=== PATIENT | female | born 1950 | race Caucasian/White ===

== ENCOUNTER → 2019-06-13 | Outpatient (CLI) | payer MEDICARE ==
[~2019-06-13] MED LIST: ADULT LOW DOSE81 MG PO; ALPRAZOLAM PO; AMBIEN 10 MG TA10 MG PO; BENTYL 10 MG CA10 M1 PO; CALCITRATE200 MG PO; COMBIVENT INH; ENALAPRIL MALEAT5 M1 PO; FISH OIL 1,0001 EAC5 PO; FLONASE; GAS-X125 MG PO; HUMALOG MI100 UNIT/3 SQ; HYDROCODONE-AP1 EAC6 PO; LANTUS SC; LASIX 40 MG TAB40 M2 PO; LEVALBUTER1.25 MG/0. INH; LIPITOR20 MG PO; LOMOTIL TABLET1 EACH PO; LYRICA 75 MG CA75 MG PO; LYRICA150 MG PO; METOLAZONE 2.52.5 M1 PO; NEXIUM40 MG PO; NIASPAN 500 MG500 M1 PO; NITROGLYCERIN0.4 MG SUBLING; OXYGEN MISCELL; POTASSIUM20 PO; PREMARIN0.3 MG PO; RESTASIS1 EACH; SINGULAIR 10 MG10 M1 PO; SYMBICORT160 MCG/4. INH; THERA-M CAPLET1 EACH PO; TRAMADOL 50 MG50 MG PO; ULTRAM 50MG TAB50 MG PO; WELLBUTRIN SR150 MG PO
== END ==
LOC: NUC 06:25
DX: I25.10 Atherosclerotic heart disease of native coronary artery without angina pectoris (principal); E78.5 Hyperlipidemia, unspecified; I11.0 Hypertensive heart disease with heart failure; I50.9 Heart failure, unspecified; E11.51 Type 2 diabetes mellitus with diabetic peripheral angiopathy without gangrene; I45.10 Unspecified right bundle-branch block; Z79.899 Other long term (current) drug therapy; Z88.0 Allergy status to penicillin

== ENCOUNTER → 2019-08-02 | Outpatient (CLI) | payer MEDICARE ==
[~2019-08-02] VITALS: Ht 149.9 cm; Wt 76.6 kg
[~2019-08-02] MED LIST changes: +B12INJ IM; -FLONASE; +FLONASE 0.05%50 MCG NASAL; +HYDROCODON-ACE1 EAC7 PO; +NEURONTIN 300300 M1 PO
[2019-08-02 13:01] VITALS: BP 139/71
--- NOTE | 2019-08-02 13:11 | NUR ---
Pain Clinic Assessment: 1. History of Osteoarthritis: History of Rheumatoid Arthritis: Not Applicable 2. Height: 4 ft. 11 in. 149.9 cm. Weight: 168.8 lb. oz. 76.567 kg. Patient's BMI: 34.1 3. Vital Signs: BP: 139/71 Pulse: 82 Resp: 16 Temp: 02 Sat: 96 ECG Mon: 4. Pain Intensity: 8-9 5. Fall Risk: Dizziness: Y Needs help standing or walking: N Fallen in the last 3 months: N Fall risk comments: 6. Patient on Blood Thinner: None 7. History of Hypertension: Y 8. Opioid Therapy greater than 6 weeks: Y Opiate Contract Signed: 9. Risk Assessment Tool Provided: 10. Functional Assessment Tool: 11. Recreational Drug Use: Never Drug Type: Tobacco Use: Never Smoker Tobacco Type: Amount or Packs/day: How Many Years: Alcohol Use: Yes Frequency: Special Occasions Quant: 1
--- NOTE | 2019-08-18 08:26 | HPC ---
[facility] [place] [address] PAIN MANAGEMENT CONSULTATION Name: MURIEL VIZCAINO Room #: REG Jacob Esteban#: [id number] Admission: 08/02/19 Attend Phys: Breann Hummel MD Discharge: Date of : 46 Report #: [id number] THIS REPORT FOR: //name// CC: Amy Hummel DATE OF SERVICE: 08/02/2019 PRIMARY CARE PHYSICIAN: Amy Hummel MD CHIEF COMPLAINT: Low back and pain in the buttocks. HISTORY OF PRESENT ILLNESS: The patient is a 69-year-old female who has been referred to the pain clinic for evaluation. She has a history of back problems. She has undergone epidural steroid injections in the past and found them beneficial. She has had some problems with her SI joint. She has undergone physical therapy. After injection in the past, she noted significant improvement in her pain. Over the last 2-1/2 to 3 months, she has noted a worsening of her pain. She has worked hard to lose weight. She has had a gastric bypass. She has lost a total of 130 pounds. Notes that she has a pulling sensation in the lower portion of her back. Has increased pain when she is bending, twisting, and finds the pain to be problematic. Most pain is across the lower portion of the back in the lumbar area. She is having pain in the right hip as well as in the groin. Does have stenosis and neurogenic bladder. Has some pain in the area above her knee with pins and needle sensation. Pain is worse when she is sitting, twisting and with any fast movements. Describes as continuous, gnawing, sharp and stabbing. Rates her pain at 8 today, can be rise to a level of 8-9. ALLERGIES: PENICILLIN. CURRENT MEDICATIONS: Hydrocodone 5/325, vitamin B12 1000 mcg monthly intramuscular, gabapentin 300 mg b.i.d., tramadol 50 mg 4 times daily, Xopenex 1.25 mg inhalation t.i.d., Wellbutrin 150 mg, Gas-X 125 mg, oxygen as directed, metolazone 2.5 mg, Lasix 40 mg b.i.d., Lomotil 4 times daily as needed, Bentyl 10 mg, Xanax 1 mg t.i.d., Symbicort 160/4.5 inhalation b.i.d., Singulair 10 mg, potassium 20 mEq, takes 4 tabs daily, Nexium 40 mg, Lipitor 20 mg, Flonase 0.05% spray, enalapril 5 mg, aspirin 81 mg, calcium 200 mg. PAST MEDICAL HISTORY: Diabetes, asthma, treated tuberculosis, hypertension, colon problems, stomach problems, emotional problems. PAST SURGICAL HISTORY: Gastric bypass in 2011, many bladder surgeries, left broken ankle, hysterectomy. SOCIAL HISTORY: She is a retired nurse. [place]ired 10-[address] [place] [address] PAIN MANAGEMENT CONSULTATION Name: MURIEL VIZCAINO Room #: REG EVELYN Lizama#: [id number] Admission: 08/02/19 Attend Phys: Breann Hummel MD Discharge: Date of : 46 Report #: [id number] REVIEW OF SYSTEMS: Decreased appetite, weakness, wears glasses, shortness of breath, chest pain, angina, asthma, rash, brittle nails, noninsulin dependent diabetes, easy bruising. LABORATORY DATA: No new laboratory values are available at the time of our interview. PAIN CLINIC ASSESSMENT AND PQRS: 1. History of osteoarthritis. The patient has some arthritic changes and complaints in her knee. She is not being treated for rheumatoid arthritis. 2. Height 4 feet 11 inches, weight 168 pounds, BMI is 34. 3. Vital Signs: Blood pressure 139/71, pulse 82, respiratory rate 16, room air saturation 96%, temperature was not measured. 4. Pain intensity 8-9/10. 5. Fall risk. The patient has not fallen in the last 3 months. 6. Blood thinner. The patient is not on a blood thinning medication. 7. Hypertension. The patient is being treated for hypertension. 8. Opioids greater than 6 weeks. The patient receives medication from her primary physician. 9. Risk assessment tool, low for opioids. 10. Functional assessment tool. 11. Recreational drug use. The patient denies use of recreational drugs. 12. Tobacco: The patient has never smoked. 13. Alcohol: The patient does occasionally drink alcoholic beverage. PHYSICAL EXAMINATION: GENERAL: The patient is a well-developed, well-nourished white female. Appears her stated age. She is alert and oriented x 3. Her affect is appropriate. Speech is fluent. HEENT: Normocephalic, atraumatic. Extraocular eye muscles intact. Sclerae nonicteric. Mucous membranes are moist. NECK: Without adenopathy or JVD. MUSCULOSKELETAL: Upper extremity muscle strength judged to be 5-/5 for the major muscle groups. Deep tendon reflexes are +3 at the biceps bilaterally. Difficult to assess for the brachioradialis and the deltoid. The patient complains of pain and discomfort in lower portion of her back. Has some pain and discomfort in the SI joint areas. Has pain radiating down the lower portion of the back as well as some pain and discomfort in the right medial thigh area. There is a burning component of the pain in the lower back area near the SI joints. Forward bending to 80 degrees cause some increased discomfort in the low back area. Left and right lateral rotation cause some increased back discomfort. The patient is able to rise to her toes. IMPRESSION: 1. Low back pain with pain radiating into the hip and the right groin area. [facility] [address] [place] [address] PAIN MANAGEMENT CONSULTATION Name: MURIEL VIZCAINO Room #: REG EVELYN ColeEsteban#: [id number] Admission: 08/02/19 Attend Phys: Breann Hummel MD Discharge: Date of : 46 Report #: [id number] 2. History of sympathetic sacroiliac joint dysfunction. 3. Diabetes. 4. Asthma. 5. Treated tuberculosis 6. Hypertension. 7. Colon problems, stomach problems, emotional problems. RECOMMENDATIONS: We will consider the possibility of an SI joint injection in the future. We will have the patient try hydrocodone 5 mg one p.o. 4-6 hours p.r.n. for pain. May consider epidural steroid injection in the upper area should the pain in the medial portion of her thigh remained, also may be a component of hip dysfunction. We would like to thank you for letting us participate in her care. We hope she continues to improve. <ELECTRONICALLY SIGNED> By: Breann Hummel MD 08/18/19 0826 [id number] [id number] Breann Hummel MD /PMT
== END ==
LOC: PAIN 07:08
DX: M54.5 Low back pain (principal); E11.9 Type 2 diabetes mellitus without complications; J45.909 Unspecified asthma, uncomplicated; I10 Essential (primary) hypertension; Z88.0 Allergy status to penicillin; Z79.891 Long term (current) use of opiate analgesic; Z79.899 Other long term (current) drug therapy

== ENCOUNTER → 2019-08-04 | Outpatient (CLI) | payer MEDICARE ==
[~2019-08-04] VITALS: Ht 149.9 cm; Wt 68.0 kg
[2019-08-04 09:35] VITALS: BP 110/65
--- NOTE | 2019-08-04 09:40 | NUR ---
Pain Clinic Assessment: 1. History of Osteoarthritis: History of Rheumatoid Arthritis: Not Applicable 2. Height: 4 ft. 11 in. 149.9 cm. Weight: 149.9 lb. oz. 67.994 kg. Patient's BMI: 30.3 3. Vital Signs: BP: 110/65 Pulse: 74 Resp: 14 Temp: 02 Sat: 96 ECG Mon: 4. Pain Intensity: 8 5. Fall Risk: Dizziness: N Needs help standing or walking: N Fallen in the last 3 months: N Fall risk comments: 6. Patient on Blood Thinner: None 7. History of Hypertension: Y 8. Opioid Therapy greater than 6 weeks: Y Opiate Contract Signed: 9. Risk Assessment Tool Provided: 10. Functional Assessment Tool: 11. Recreational Drug Use: Never Drug Type: Tobacco Use: Never Smoker Tobacco Type: Amount or Packs/day: How Many Years: Alcohol Use: Yes Frequency: Quant:
--- NOTE | 2019-08-18 08:26 | HPC ---
[facility] [address] [place] [address] PAIN MANAGEMENT CONSULTATION Name: MURIEL VIZCAINO Room #: REG EVELYN Dl#: [id number] Admission: 08/04/19 Attend Phys: Breann Hummel MD Discharge: Date of : 46 Report #: [id number] THIS REPORT FOR: //name// CC: Amy Hummel DATE OF SERVICE: 08/04/2019 CHIEF COMPLAINT: Here for an injection in the sacroiliac joints. HISTORY: The patient is a 69-year-old female who has been seen in the Pain Clinic in the past because of chronic back problems. She has undergone epidural injections in the past. These have been beneficial. She has also had problems with her sacroiliac joints. After undergoing injections in these areas, she has found that they have been helpful. She has noted over the last 2-1/2 to 3 months that her pain has again started to worsen. She has been working hard trying to lose weight. Overall, she has lost a total of about 130 pounds. She notes that bending, twisting, and other movements can exacerbate pain and discomfort. She has been having some pain in the right hip as well as it was emanating or radiating into the groin. Has a history of stenosis and neurogenic bladder. Has had some continuous gnawing, sharp, stabbing pain and rates her pain as an 8/10 today. She has returned to the Pain Clinic with a desire of undergoing SI joint injections. ALLERGIES: PENICILLIN. CURRENT MEDICATIONS: Hydrocodone 5/325, vitamin B12 1000 mcg monthly intramuscular, gabapentin 300 mg b.i.d., tramadol 50 mg 4 times daily, Xopenex 1.25 mg inhalation t.i.d., Wellbutrin 150 mg, Gas-X 125 mg, oxygen as directed, metolazone 2.5 mg, Lasix 40 mg b.i.d., Lomotil 4 times daily, Bentyl 10 mg, Xanax 1 mg t.i.d., Symbicort 160 mcg/4.5 inhalation b.i.d., Singulair 10 mg, potassium 20 mEq, 4 tablets daily, Nexium 40 mg, Lipitor 20 mg, Flonase 0.05% spray, enalapril 5 mg, aspirin 81 mg, and calcium 200 mg. PAIN CLINIC ASSESSMENT/PQRS: 1. History of osteoarthritis. The patient has some arthritic changes and has had problems with her knees. She is not being treated for rheumatoid arthritis. 2. Height 4 feet 11 inches, weight 149 pounds, and BMI is 30. 3. Vital signs: Blood pressure 110/65, pulse 74, respiratory rate 14, room air saturation 96%. 4. Pain intensity, 8/10. 5. Fall history: The patient has not fallen in the last 3 months. 6. Blood thinner. The patient is not on a blood thinning medication. 7. Hypertension. The patient is being treated for hypertension. 8. Opioids greater than 6 weeks. The patient received medication from her primary physician. [address] [address] PAIN MANAGEMENT CONSULTATION Name: MURIEL VIZCAINO Room #: REG CLJacob Lizama#: [id number] Admission: 08/04/19 Attend Phys: Breann Hummel MD Discharge: Date of : 46 Report #: [id number] 9. Risk assessment tool, low for opioid use. 10. Functional assessment tool. 11. Recreational drug use. The patient denies use of recreational drugs. 12. Tobacco: The patient has never smoked. 13. Alcohol: The patient does occasionally drink alcoholic beverages. PHYSICAL EXAMINATION: GENERAL: The patient is a well-developed, well-nourished white female. Appears her stated age. She is alert and oriented x 3. Her affect is appropriate. Speech is fluent. HEENT: Normocephalic, atraumatic. Extraocular eye muscles intact. Sclerae nonicteric. Mucous membranes are moist. MUSCULOSKELETAL: Upper extremity muscle strength judged to be 5-/5 for the major muscle groups in the upper extremity. The patient has some pain and discomfort in lower portion of her back. Has some pain in the SI joint areas. Has pain that radiates down to the lower portion of her back as well as pain in the right medial aspect of her thigh. There is a burning component to the pain in the lower portion of her back near the SI joints. Forward bending to 80 degrees cause some increased low back discomfort. Left and right lateral rotation cause some increased back discomfort. The patient is able to rise on her toes. IMPRESSION: 1. Low back pain with pain radiating into the hips and in the right groin. 2. History of symptomatic sacroiliac joint dysfunction. 3. Diabetes. 4. Asthma. 5. Treated tuberculosis. 6. Hypertension. 7. Colon problems, stomach. 8. Stomach problems. 9. Emotional problems. RECOMMENDATIONS: We discussed treatment options with the patient. Risks and benefits of an SI joint injection to the affected areas were discussed. The patient has had these injected in the past and found them beneficial. She has returned today with hopes of undergoing an injection to help decrease her pain and discomfort. The patient was then taken to the procedure area. Questions were sought and answered. PROCEDURE: The patient was then assisted in getting on examination table. Fluoroscopy using anterior, posterior as well as lateral viewing were implemented. The patient's back was sterilely prepped with a Betadine solution and allowed to dry on the left and the right side. The right side was initially reviewed using fluoroscopy. A 0.25% bupivacaine was infiltrated at the right SI joint area. A 20-gauge spinal needle was then advanced down into the SI joint [address] [address] PAIN MANAGEMENT CONSULTATION Name: MURIEL VIZCAINO Room #: REG EVELYN Lizama#: [id number] Admission: 08/04/19 Attend Phys: Breann Hummel MD Discharge: Date of : 46 Report #: [id number]. Aspiration was negative. A total of 40 mg Depo-Medrol with 20 mg triamcinolone was injected into this area. The area had been highlighted using contrast medium for appropriate placement. The patient tolerated this well. She was then evaluated on the left side. Her back had been sterilely prepped. The SI joint area on the left was identified using fluoroscopy. Contrast dye was injected and appropriate spread was noted. A total of 40 mg Depo-Medrol and 20 mg triamcinolone was injected. A total of 6 mL of 0.5% bupivacaine was injected on the left side as well as the right side. Total of 36 seconds fluoroscopy time was used. The patient underwent the bilateral SI joint injections and tolerated well. Pain was decreased from 9-2 at the time of discharge. She will follow up in the future as needed. We would like to thank you for letting us participate in her care. We hope she continues to improve. <ELECTRONICALLY SIGNED> By: Breann Hummel MD 08/18/19 0826 [id number] [id number] Breann Hummel MD /nt
== END | disposition home or self-care (01) ==
LOC: PAIN 06:50
DX: M53.3 Sacrococcygeal disorders, not elsewhere classified (principal); M54.16 Radiculopathy, lumbar region; G89.29 Other chronic pain; I10 Essential (primary) hypertension; J45.909 Unspecified asthma, uncomplicated; E11.9 Type 2 diabetes mellitus without complications; Z98.890 Other specified postprocedural states; Z79.899 Other long term (current) drug therapy; Z88.0 Allergy status to penicillin; Z79.891 Long term (current) use of opiate analgesic; Z88.8 Allergy status to other drugs, medicaments and biological substances; Z79.82 Long term (current) use of aspirin

== ENCOUNTER → 2019-09-22 | Outpatient (CLI) | payer MEDICARE ==
[~2019-09-22] VITALS: Ht 149.9 cm; Wt 74.1 kg
[~2019-09-22] MED LIST changes: +TYLENOL PM EX-1 EACH PO
[2019-09-22 12:41] VITALS: BP 124/70
--- NOTE | 2019-09-22 12:56 | NUR ---
Pain Clinic Assessment: 1. History of Osteoarthritis: Not Applicable History of Rheumatoid Arthritis: Not Applicable 2. Height: 4 ft. 11 in. 149.9 cm. Weight: 163.3 lb. oz. 74.072 kg. Patient's BMI: 33.0 3. Vital Signs: BP: 124/70 Pulse: 92 Resp: 16 Temp: 02 Sat: 96 ECG Mon: 4. Pain Intensity: 10 5. Fall Risk: Dizziness: N Needs help standing or walking: N Fallen in the last 3 months: N Fall risk comments: 6. Patient on Blood Thinner: None 7. History of Hypertension: Y 8. Opioid Therapy greater than 6 weeks: Y Opiate Contract Signed: 9. Risk Assessment Tool Provided: 10. Functional Assessment Tool: 11. Recreational Drug Use: Never Drug Type: Tobacco Use: Never Smoker Tobacco Type: Amount or Packs/day: How Many Years: Alcohol Use: Yes Frequency: Quant:
--- NOTE | 2019-10-17 21:49 | HPC ---
[facility] [address] [place] [address] PAIN MANAGEMENT CONSULTATION Name: MURIEL VIZCAINO Room #: REG EVELYN Dl#: [id number] Admission: 09/22/19 Attend Phys: Breann Hummel MD Discharge: Date of : 46 Report #: [id number] THIS REPORT FOR: //name// CC: Amy Hummel DATE OF SERVICE: 09/22/2019 CHIEF COMPLAINT: Pain in the right thigh area that radiates down to the thigh with numbness, tingling and pain in the sacroiliac joint area. HISTORY: The patient is a 69-year-old female who has been seen in the Pain Clinic because of pain and discomfort in the sacroiliac joint areas. Epidural steroid injections have been helpful in the past. She had an injection in the SI joint in the past. She feels that this area on the right is that which is most problematic. She would like to proceed with another SI joint injection. She gleaned benefit from that injection in the past. She feels that this is the nidus for most of her pain and discomfort. She has been losing weight. She has lost a total of 130 pounds. Bending and twisting motions can exacerbate her pain. Has had some pain in the groin area. Has some problems with stenosis as well as problems with a neurogenic bladder. She has returned today with the hope of undergoing an injection to help decrease her pain. Her had a myocardial infarct. She had a 95% blockage. She has been taking care of him. Has used pain pills. She has found that they have been helpful. Repositioning herself can also be helpful. Describes some of the pain in the low back and buttocks area like a bowling ball in the middle of her buttocks. ALLERGIES: PENICILLIN. CURRENT MEDICATIONS: Hydrocodone 5/325, vitamin B12 1000 mcg monthly intramuscular, gabapentin 300 mg b.i.d., tramadol 50 mg 4 times daily, Xopenex 1.25 mg t.i.d. p.r.n., Wellbutrin 150 mg, Gas-X 125 mg, oxygen as directed, metolazone 2.5 mg, Lasix 40 mg b.i.d., Lomotil 4 times daily, Bentyl 10 mg, Xanax 1 mg t.i.d., Symbicort 160 mcg/4.5 b.i.d., Singulair 10 mg, potassium 20 mEq, 4 tablets daily, Nexium 40 mg, Lipitor 20 mg, Flonase 0.05% spray, enalapril 5 mg, aspirin 81 mg, calcium 200 mg. PAIN CLINIC ASSESSMENT/PQRS: 1. History of osteoarthritis. The patient is not being treated for osteoarthritis or rheumatoid arthritis. 2. Height 4 feet 11 inches, weight 161 pounds, BMI is 33. 3. Vital signs: Blood pressure 124/70, pulse 92, respiratory rate 16, room air saturation 96%. 4. Pain intensity, 10/10. 5. Fall history: The patient has not fallen in the last 3 months. 6. Blood thinner. The patient is not on a blood thinning medication. [address] [address] PAIN MANAGEMENT CONSULTATION Name: MURIEL VIZCAINO Room #: REG CLJacob Lizama#: [id number] Admission: 09/22/19 Attend Phys: Breann Hummel MD Discharge: Date of : 46 Report #: [id number] 7. Hypertension. The patient is being treated for hypertension. 8. Opioids greater than 6 weeks. The has low score for opioid use. 9. Functional assessment tool, . 10. Recreational drugs. The patient denies use of recreational drugs. 11. Tobacco: The patient has never smoked. 12. Alcohol: The patient occasionally drinks alcoholic beverage. PHYSICAL EXAMINATION: GENERAL: The patient is a well-developed, well-nourished white female. She appears her stated age. She is alert and oriented x 3. Her affect is appropriate. Speech is fluent. HEENT: Normocephalic, atraumatic. Extraocular eye muscles intact. Sclerae nonicteric. Mucous membranes are moist. MUSCULOSKELETAL: Upper extremity muscle strength is 5/5 for the major muscle groups in the upper extremity. The patient has pain and discomfort in lower portion of her back. Has some pain in the SI joint area, particularly on the right. Has positive Js's sign on the right. The patient notes a burning component to her pain in the lower SI joint area. Forward bending to 80 degrees cause some increased pain and discomfort. IMPRESSION: 1. Sacroiliac joint dysfunction with pain radiating into the right groin area as well as diabetes. 2. Asthma. 3. Tuberculosis treated in the past. 4. Hypertension. 5. Colon problems/stomach. 6. Emotional problems. RECOMMENDATIONS: We discussed treatment options with the patient. Risks and benefits of an SI joint injection were discussed. They include but are not limited to infection, worsening pain, no improvement in pain, bleeding and nerve damage. The patient elects to proceed. PROCEDURE NOTE: The patient was taken to the procedure area. She was then assisted in getting on examination table. Fluoroscopy using anterior, posterior viewing were implemented. The patient's back had been sterilely prepped with a Betadine solution and allowed to dry. A skin wheal was placed at the right SI joint area. A 25-gauge needle was then used to anesthetize the area. After this area was anesthetized. A 20-gauge spinal needle was then advanced into the area of the SI joint. Contrast media was injected. Appropriate flow was noted. A total of 40 mg triamcinolone and 5 mL of 0.5% bupivacaine was injected. The patient tolerated the procedure well. There were no complications. She remained in the Pain Clinic for an appropriate amount of time. She will follow up in the future as needed. [address] [address] PAIN MANAGEMENT CONSULTATION Name: MURIEL VIZCAINO Room #: REG [facility].#: [id number] Admission: 09/22/19 Attend Phys: Breann Hummel MD Discharge: Date of : 46 Report #: [id number] We would like to thank you for letting us participate in her care. We hope she continues to improve. <ELECTRONICALLY SIGNED> By: Breann Hummel MD 10/17/19 2149 [id number] Breann Hummel MD /nt
== END | disposition home or self-care (01) ==
LOC: PAIN 06:49
DX: M53.3 Sacrococcygeal disorders, not elsewhere classified (principal); Z88.0 Allergy status to penicillin; Z79.82 Long term (current) use of aspirin; Z79.899 Other long term (current) drug therapy; Z98.890 Other specified postprocedural states

== ENCOUNTER → 2019-10-11 | Outpatient (CLI) | payer MEDICARE ==
[~2019-10-11] VITALS: Ht 149.9 cm; Wt 74.5 kg
[2019-10-11 08:47] VITALS: BP 125/61
--- NOTE | 2019-10-11 09:08 | NUR ---
Pain Clinic Assessment: 1. History of Osteoarthritis: Not Applicable History of Rheumatoid Arthritis: Not Applicable 2. Height: 4 ft. 11 in. 149.9 cm. Weight: 164.2 lb. oz. 74.481 kg. Patient's BMI: 33.1 3. Vital Signs: BP: 125/61 Pulse: 93 Resp: 14 Temp: 02 Sat: 95 ECG Mon: 4. Pain Intensity: 10 5. Fall Risk: Dizziness: N Needs help standing or walking: N Fallen in the last 3 months: N Fall risk comments: 6. Patient on Blood Thinner: None 7. History of Hypertension: Y 8. Opioid Therapy greater than 6 weeks: Y Opiate Contract Signed: 9. Risk Assessment Tool Provided: 10. Functional Assessment Tool: 11. Recreational Drug Use: Never Drug Type: Tobacco Use: Never Smoker Tobacco Type: Amount or Packs/day: How Many Years: Alcohol Use: Yes Frequency: Weekly Quant: 2-3 GLASSES OF WINE
--- NOTE | 2019-10-25 13:08 | HPC ---
[facility] [address] [place] [address] PAIN MANAGEMENT CONSULTATION Name: MURIEL VIZCAINO Room #: REG JESSICAJacob Burgos.#: [id number] Admission: 10/11/19 Attend Phys: Breann Hummel MD Discharge: Date of : 46 Report #: [id number] THIS REPORT FOR: //name// CC: Amy Hummel DATE OF SERVICE: 10/11/2019 CHIEF COMPLAINT: Still having pain in the sacroiliac area. HISTORY: The patient is a 69-year-old female who has been seen in the pain clinic because of SI joint dysfunction. She has had injections in the SI joints in the past and gleaned benefits from these. She continues to have pain, which is quite debilitating at this point. Rates her pain at a high level of 10/10. She has returned to the pain clinic with the hopes of undergoing another SI joint injection with some improvement in her pain. She notes that the pain is primarily on the right side. She has had some on the left side in the past. She is having difficulty engaging in activities of daily living because of this. She has returned with hopes of undergoing SI joint injection. ALLERGIES: PENICILLIN. CURRENT MEDICATIONS: Hydrocodone 5/325 1 p.o. q.4 hours p.r.n., vitamin B12 1000 mcg monthly intramuscular, gabapentin 300 mg b.i.d., tramadol 50 mg 4 times daily, Xopenex 1.25 mg inhalation t.i.d., Wellbutrin 150 mg, Gas-X 125 mg, oxygen p.r.n., metolazone 2.5 mg, Lasix 40 mg b.i.d., Lomotil 4 mg p.r.n., Bentyl 10 mg, Xanax 1 mg t.i.d., Symbicort 160 mcg/4.5 inhalation b.i.d., Singulair 10 mg, potassium 20 mEq, Nexium 40 mg, Lipitor 20 mg, Flonase 0.05% spray, enalapril 5 mg, aspirin 81 mg, calcium 200 mg. PAIN CLINIC ASSESSMENT AND PQRS: 1. The patient has some arthritic changes involving her knees. She is not being treated for rheumatoid arthritis. 2. Height 4 feet 11 inches, weight 162 pounds, BMI is 32.7. 3. Vital signs: Blood pressure 125/61, pulse 93, respiratory rate 14, room air saturation 95%. 4. Pain intensity, 10/10. 5. Fall risk, the patient has not fallen in the last 3 months. 6. Blood thinner, the patient is not on a blood thinning medication. 7. Hypertension, the patient is not being treated for hypertension. 8. Opioids greater than 6 weeks. The patient is receiving opioid medications p.r.n. 9. Risk assessment tool, low for opioid use. 10. Functional assessment tool, 38 of 70. 11. Recreational drug use, the patient denies. 12. Tobacco, the patient has never smoked. [address] [address] PAIN MANAGEMENT CONSULTATION Name: MURIEL VIZCAINO Room #: REG JESSICAJacob Lizama#: [id number] Admission: 10/11/19 Attend Phys: Breann Hummel MD Discharge: Date of : 46 Report #: [id number] 13. Alcohol, the patient drinks alcoholic beverages 2-3 times a week, a glass of wine. PHYSICAL EXAMINATION: GENERAL: The patient is a well-developed, somewhat short in stature, white female. Appears her stated age. She is alert and oriented x 3. Affect is appropriate. MUSCULOSKELETAL: The patient has pain and discomfort in the right SI joint area. Js sign is positive. The patient would like to have an injection. There is less pain and discomfort on the left side. IMPRESSION: Sacroiliac joint dysfunction. RECOMMENDATIONS: We discussed treatment options with the patient. Risks and benefits of the procedure, which could include but are not limited to infection, worsening of pain, no improvement in pain were discussed and the patient elects to proceed. PROCEDURE NOTE: The patient was taken to the procedure area. She was then assisted in getting on examination table. Her back was sterilely prepped with a Betadine solution. A 0.25% bupivacaine was infiltrated into the area. This was used with a 25-gauge needle to anesthetize the area. A 20-gauge spinal needle was then advanced into the SI joint. Aspiration was negative. A total of 80 mg Depo-Medrol, 40 mg triamcinolone and 0.5% 3 mL was injected. IV contrast dye was used. Appropriate spread was noted. There were no complications. The patient remained in the pain clinic. Her pain decreased from 10-2 at the time of discharge. Hopefully, she will continue to improve. <ELECTRONICALLY SIGNED> By: Breann Hummel MD 10/25/19 1308 [id number] Breann Hummel MD /[facility]
== END | disposition home or self-care (01) ==
LOC: PAIN 06:55
DX: M53.3 Sacrococcygeal disorders, not elsewhere classified (principal); G89.29 Other chronic pain; Z98.890 Other specified postprocedural states; Z79.899 Other long term (current) drug therapy; Z79.891 Long term (current) use of opiate analgesic; Z88.0 Allergy status to penicillin

== ENCOUNTER → 2020-01-29 | Outpatient (CLI) | payer MEDICARE | LOC: RAD 11:16 | DX: M41.85 Other forms of scoliosis, thoracolumbar region (principal); M47.816 Spondylosis without myelopathy or radiculopathy, lumbar region; M53.84 Other specified dorsopathies, thoracic region ==

== ENCOUNTER → 2020-01-31 | Outpatient (CLI) | payer MEDICARE ==
[~2020-01-31] VITALS: Ht 149.9 cm; Wt 75.4 kg
[2020-01-31 10:18] VITALS: BP 120/60
--- NOTE | 2020-01-31 10:27 | NUR ---
Pain Clinic Assessment: 1. History of Osteoarthritis: Not Applicable History of Rheumatoid Arthritis: Not Applicable 2. Height: 4 ft. 11 in. 149.9 cm. Weight: 166.2 lb. oz. 75.388 kg. Patient's BMI: 33.6 3. Vital Signs: BP: 120/60 Pulse: 76 Resp: 16 Temp: 02 Sat: 99 ECG Mon: 4. Pain Intensity: 10 5. Fall Risk: Dizziness: Y Needs help standing or walking: N Fallen in the last 3 months: N Fall risk comments: 6. Patient on Blood Thinner: None 7. History of Hypertension: Y 8. Opioid Therapy greater than 6 weeks: Y Opiate Contract Signed: 9. Risk Assessment Tool Provided: LOW RISK 10. Functional Assessment Tool: 11. Recreational Drug Use: Never Drug Type: Tobacco Use: Never Smoker Tobacco Type: Amount or Packs/day: How Many Years: Alcohol Use: No Frequency: Quant:
--- NOTE | 2020-02-02 08:21 | HPC ---
[facility] [place] [place] [address] PAIN MANAGEMENT CONSULTATION Name: MURIEL VIZCAINO Room #: REG [facility].#: [id number] Admission: 01/31/20 Attend Phys: Breann Hummel MD Discharge: Date of : 46 Report #: [id number] THIS REPORT FOR: cc: Amy Hummel MD,Amy Hummel,Breann Moran MD ~ CC: Amy Hummel DATE OF SERVICE: 01/31/2020 CHIEF COMPLAINT: The pain in the sacroiliac area has returned and would like to get an injection. HISTORY: The patient is a 69-year-old female who has been followed in the pain clinic because of sacroiliac joint dysfunction. She has undergone epidural injections in these areas. She has found that they have been beneficial. Over the last few weeks, she has noted a recurrence of her discomfort. She felt that the last injection was beneficial and she would like to proceed with another injection today. She has had no complications from their use. Last injection was in 10/2019. Notes that certain activities of ambulation exacerbate her pain and discomfort. Bending, twisting motions are problematic. She finds that hydrocodone is helpful. She would like to have this medication renewed. ALLERGIES: PENICILLIN. CURRENT MEDICATIONS: Hydrocodone 5/325 one p.o. q. 4-6 hours, total of 75 tablets given at the last visit. Tramadol 50 mg q.i.d., Xopenex 1.25 mg inhalation t.i.d., Wellbutrin 150 mg, Gas-X 125 mg, oxygen as directed, Metolazone 2.5 mg, Lasix 40 mg b.i.d., Lomotil 4 times daily, Bentyl 10 mg, Xanax 1 mg t.i.d., Symbicort 160 mcg/4.5 b.i.d., Singulair 10 mg, potassium 20 mEq 4 tablets daily, Nexium 40 mg, Lipitor 20 mg, Flonase 0.05% spray, Enalapril 5 mg, aspirin 81 mg, calcium 200 mg. PAIN CLINIC ASSESSMENT AND PQRS: 1. The patient has some arthritic changes in her back and her knees. She is not being treated for rheumatoid arthritis. 2. Height 4 feet 11 inches, weight 166 pounds, BMI is 33.6. 3. Vital Signs: Blood pressure 120/60, pulse 76, respiratory rate 16, room air saturation 99%. 4. Pain intensity 10/10. 5. Fall history: The patient has not fallen in the last 3 months. 6. Blood thinner. The patient is not on a blood thinning medication. 7. Hypertension. The patient is being treated for hypertension. 8. Opioids greater than 6 weeks. The patient receives medication [place] [address] PAIN MANAGEMENT CONSULTATION Name: MURIEL VIZCAINO Room #: [facility] [id number] Admission: 01/31/20 Attend Phys: Breann Hummel MD Discharge: Date of : 46 Report #: [id number] 9. Risk assessment tool, low for opioid use. 10. Functional assessment tool /. 11. Recreational drug use: The patient denies. 12. Tobacco: The patient has never smoked. 13. Alcohol. The patient denies frequent use of alcoholic beverages. PHYSICAL EXAMINATION: GENERAL: The patient is a well-developed, well-nourished white female. Appears her stated age. She is alert and oriented x 3. Her affect is appropriate. Speech is fluent. HEENT: Normocephalic, atraumatic. Extraocular eye muscles are intact. The patient is accompanied by her . MUSCULOSKELETAL: Upper extremity muscle strength judged to be 5/5 for the major muscle groups in the upper extremity. HEART: Regular. ABDOMEN: Nontender. EXTREMITIES: Lower extremity, the patient has pain and discomfort in the lower portion of her back, buttocks area with some pain that radiates down the posterior portion of her back in the area of the sacroiliac joint. Forward bending cause some increased discomfort. Positive Js's sign. IMPRESSION: 1. Low back pain with pain radiating into the hip and the right SI joint area. 2. History of symptomatic sacroiliac joint dysfunction. 3. Diabetes. 4. Asthma. 5. Tuberculosis - treated. 6. Hypertension. 7. Colon problems -- stomach. 8. Emotional problems. RECOMMENDATIONS: We discussed treatment options with the patient. Risks and benefits of an sacroiliac joint injection were discussed. Possible complications of the procedure, which could include but are not limited to infection, worsening pain, no improvement in pain, nerve damage were reviewed. The patient elects to proceed. PROCEDURE NOTE: The patient was taken to the procedure area. She was then assisted in getting on the examination table. Her back was sterilely prepped in the right low back area. This area was infiltrated with 0.5% bupivacaine. Anterior, posterior and lateral viewing were implemented for placement of the needle. The area had been sterilely cleansed with a chlorhexidine solution. A 0.25% bupivacaine was infiltrated into this area using a 25-gauge needle. A 22-gauge spinal needle was then advanced into the SI joint. Aspiration was negative. The patient states that this placement reproduce a component of her pain. A total of 2 mL of 0.5% bupivacaine and 40 mg triamcinolone, 80 mg [facility] [address] [place] [address] PAIN MANAGEMENT CONSULTATION Name: MURIEL VIZCAINO Room #: REG [facility] [id number] Admission: 01/31/20 Attend Phys: Breann Hummel MD Discharge: Date of : 46 Report #: [id number] Depo-Medrol was injected. The patient tolerated the procedure well. Fluoroscopy time was 22 seconds. The patient's pain decreased from 10 to 5 at the time of discharge. She will follow up in the future as needed. A script for her medications have been provided. The patient will continue use episodically of hydrocodone 5/325 one p.o. q. 6 hours, total of 75 tablets have been provided. The patient will call us if she has any concerns. We would like to thank you for letting us participate in her care. We hope she continues to improve. <ELECTRONICALLY SIGNED> By: Breann Hummel MD 02/02/20 0821 [id number] Breann Hummel MD /[facility]
== END | disposition home or self-care (01) ==
LOC: PAIN 06:50
DX: M53.3 Sacrococcygeal disorders, not elsewhere classified (principal); G89.29 Other chronic pain; M54.16 Radiculopathy, lumbar region; J45.909 Unspecified asthma, uncomplicated; I10 Essential (primary) hypertension; E11.9 Type 2 diabetes mellitus without complications; Z87.19 Personal history of other diseases of the digestive system; Z98.890 Other specified postprocedural states; Z79.899 Other long term (current) drug therapy; Z88.0 Allergy status to penicillin; Z79.82 Long term (current) use of aspirin

== ENCOUNTER → 2020-03-06 | Outpatient (CLI) | payer MEDICARE ==
[~2020-03-06] VITALS: Ht 149.9 cm; Wt 73.0 kg
[2020-03-06 12:35] VITALS: BP 133/79
--- NOTE | 2020-03-06 12:45 | NUR ---
Pain Clinic Assessment: 1. History of Osteoarthritis: Not Applicable History of Rheumatoid Arthritis: Not Applicable 2. Height: 4 ft. 11 in. 149.9 cm. Weight: 161.0 lb. oz. 73.029 kg. Patient's BMI: 32.5 3. Vital Signs: BP: 133/79 Pulse: 107 Resp: 18 Temp: 02 Sat: 95 ECG Mon: 4. Pain Intensity: 10 5. Fall Risk: Dizziness: N Needs help standing or walking: Y Fallen in the last 3 months: N Fall risk comments: 6. Patient on Blood Thinner: None 7. History of Hypertension: Y 8. Opioid Therapy greater than 6 weeks: Y Opiate Contract Signed: 9. Risk Assessment Tool Provided: LOW RISK 10. Functional Assessment Tool: 11. Recreational Drug Use: Never Drug Type: Tobacco Use: Never Smoker Tobacco Type: Amount or Packs/day: How Many Years: Alcohol Use: No Frequency: Quant:
--- NOTE | 2020-03-13 07:58 | HPC ---
[facility] [address] [address] PAIN MANAGEMENT CONSULTATION Name: MURIEL VIZCAINO Room #: REG EVELYN Burgos.#: [id number] Admission: 03/06/20 Attend Phys: Breann Hummel MD Discharge: Date of : 46 Report #: [id number] THIS REPORT FOR: cc: Amy Hummel MD,Amy Hummel,Breann Moran MD ~ CC: Amy Hummel DATE OF SERVICE: 03/06/2020 PRIMARY CARE PHYSICIAN: Amy Hummel MD CHIEF COMPLAINT: Pain in the right sacroiliac joint area. HISTORY: The patient is a 69-year-old female who has been followed in the pain clinic. She does suffer from chronic sacroiliac joint dysfunction. She has undergone SI joint injections in the past. These have been fruitful. She returns today indicating that her pain level has increased markedly. She rates it as a 10/10. It engulfs all of her activities. States that she is having some discomfort when walking and having some difficulty with her balance. She has not fallen. Perceives some right leg weakness because of the pain. She has tried CBD oil topically. She does feel that this has been somewhat helpful. She did not rest very long after the last injection. She became more active. She notes that the pain at this juncture is problematic and she is getting only 4-5 hours of sleep nightly. Bending, twisting, and moving can exacerbate her discomfort. ALLERGIES: PENICILLIN. CURRENT MEDICATIONS: Oxygen, metolazone 2.5 mg, total of 5 mg daily, Lasix 40 mg b.i.d., Lomotil p.r.n. diarrhea, Bentyl 10 mg 4 times daily, alprazolam 1 mg t.i.d., Symbicort 160/4.5, Singulair 10 mg, K-Dur 20 mEq, Nexium 40 mg, Lipitor 20 mg, Flonase 0.05% spray, enalapril 5 mg, aspirin 81 mg, Citracal 200 mg. PAIN CLINIC ASSESSMENT AND PQRS: 1. The patient has some arthritic changes in her back and in her knees. She is not being treated for rheumatoid arthritis. 2. Height 4 feet 11 inches, weight 161 pounds, BMI is 32.5. 3. Vital Signs: Blood pressure 133/79, pulse 107, respiratory rate 18, room air saturation 95%. 4. Pain intensity 10/10. 5. Fall history: The patient has not fallen. 6. Blood thinner. The patient is not on a blood thinning medication. 7. Hypertension. The patient is being treated for hypertension. 8. Opioids greater than 6 weeks. The patient receives medication from the pain [address] [address] PAIN MANAGEMENT CONSULTATION Name: MURIEL VIZCAINO Room #: REG [facility] Hospital[facility]#: [id number] Admission: 03/06/20 Attend Phys: Breann Hummel MD Discharge: Date of : 46 Report #: [id number] clinic. 9. Risk assessment tool, low for opioid use. 10. Functional assessment tool 38 of 70. 11. Recreational drug use. The patient denies. 12. Tobacco: The patient denies use of tobacco at this juncture. 13. Alcohol. The patient denies use of alcoholic beverages. PHYSICAL EXAMINATION: GENERAL: The patient is a well-developed, well-nourished white female. She is alert and oriented x 3. Her affect is appropriate. Speech is fluent. HEENT: Normocephalic, atraumatic. Extraocular eye muscles intact. She is accompanied by her . MUSCULOSKELETAL: Upper extremity muscle strength judged to be 5/5 for the major muscle groups in the upper extremity. HEART: Regular rate. ABDOMEN: Nontender. EXTREMITIES: Lower extremity muscle strength is somewhat decreased with pain in the right buttocks area and pain that radiates down the posterior portion in the sacroiliac joint area. Positive Js's sign. IMPRESSION: 1. Low back pain with pain radiating down to the right hip and right SI joint area. 2. History of symptomatic sacroiliac joint dysfunction. 3. Diabetes. 4. Asthma. 5. Tuberculosis, treated. 6. Hypertension. 7. Colon problems. 8. Emotional problems. RECOMMENDATIONS: We discussed treatment options with the patient. We explained to the patient the benefits of SI joint injections as we have in the past. We added list of complications, which at this point have increased because of COVID-19 infection. We explained to the patient that she has a number of risk factors, which is that of being greater than 60. The patient has comorbidities, which are pulmonary. Has diabetes and we explained that the use of steroids can suppress the immune system. She states that her pain is very problematic. She is staying isolated at home. She feels that the pain is so problematic that it feels like her leg is going to "break." Has some pain in the buttocks area with some pain radiating into the groin area as well. Pain in the right lateral thigh and down into the lateral portion. We will proceed. PROCEDURE NOTE: The patient was taken to the procedure area. She was then assisted in getting on the examination table. Her back was sterilely prepped with a Betadine solution. The right low back area was infiltrated with 0.25% [facility] [address] [place] [address] PAIN MANAGEMENT CONSULTATION Name: MURIEL VIZCAINO Room #: REG EVELYN Lizama#: [id number] Admission: 03/06/20 Attend Phys: Breann Hummel MD Discharge: Date of : 46 Report #: [id number] bupivacaine using a 25-gauge needle. A 22-gauge spinal needle was then advanced into the right SI area. Contrast dye was injected. Appropriate spread was noted. A total of 80 mg Depo-Medrol was injected. The patient tolerated the procedure well. She remained in the Pain Clinic for an appropriate amount of time. Her pain decreased from 10-2 at the time of discharge. The patient will go stay home for the next few weeks. We would like to thank you for letting us participate in her care. We hope she continues to improve. <ELECTRONICALLY SIGNED> By: Breann Hummel MD 03/13/20 [id number] Breann Hummel MD /[facility]
== END | disposition home or self-care (01) ==
LOC: PAIN 07:52
DX: M53.3 Sacrococcygeal disorders, not elsewhere classified (principal); M54.16 Radiculopathy, lumbar region; I10 Essential (primary) hypertension; E11.9 Type 2 diabetes mellitus without complications; J45.909 Unspecified asthma, uncomplicated; Z98.890 Other specified postprocedural states; Z79.899 Other long term (current) drug therapy; Z88.8 Allergy status to other drugs, medicaments and biological substances
CPT/HCPCS: G0260

== ENCOUNTER → 2020-05-06 | Outpatient (CLI) | payer MEDICARE ==
[~2020-05-06] VITALS: Ht 149.9 cm; Wt 73.2 kg
[~2020-05-06] MED LIST changes: +NEURONTIN 300M300 M2 PO
[2020-05-06 13:08] VITALS: BP 122/59
--- NOTE | 2020-05-06 13:20 | NUR ---
Pain Clinic Assessment: 1. History of Osteoarthritis: Not Applicable History of Rheumatoid Arthritis: Not Applicable 2. Height: 4 ft. 11 in. 149.9 cm. Weight: 161.4 lb. oz. 73.211 kg. Patient's BMI: 32.6 3. Vital Signs: BP: 122/59 Pulse: 86 Resp: 20 Temp: 02 Sat: 97 ECG Mon: 4. Pain Intensity: 10 5. Fall Risk: Dizziness: Y Needs help standing or walking: N Fallen in the last 3 months: N Fall risk comments: 6. Patient on Blood Thinner: None 7. History of Hypertension: Y 8. Opioid Therapy greater than 6 weeks: Y Opiate Contract Signed: 9. Risk Assessment Tool Provided: LOW RISK 10. Functional Assessment Tool: 11. Recreational Drug Use: Never Drug Type: Tobacco Use: Never Smoker Tobacco Type: Amount or Packs/day: How Many Years: Alcohol Use: No Frequency: Quant:
--- NOTE | 2020-05-15 15:46 | HPC ---
[facility] [place] [address] PAIN MANAGEMENT CONSULTATION Name: MURIEL VIZCAINO Room #: REG EVELYN ColeCharleneJeromeCharlene#: [id number] Admission: 05/06/20 Attend Phys: Breann Hummel MD Discharge: Date of : 46 Report #: [id number] THIS REPORT FOR: cc: Noelle Hummel MD, N. Wayne MD Brown, N. Wayne MD ~ CC: NOELLE Hummel DATE OF SERVICE: 05/06/2020 CHIEF COMPLAINT: Here for medication renewal. I'm still having some back and right side buttock pain. HISTORY: The patient is a 69-year-old female who has been followed in the Pain Clinic. As you may recall, she suffers from chronic sacroiliitis. She has undergone injections and found them beneficial. She returns today and rates her pain as a 10/10. She continues to have pain in the right hip and buttocks area. This involves the right thigh. She has had this problem since about 2013. She describes it as constant, aching, sometimes tingling, sometimes tenderness is noted as well as stabbing and numbness in the affected area. Pain increases when she lies on her right side. Standing and walking can be problematic. She feels that the pain is worse at night. She has difficulty walking upstairs. She has noticed that her medications are helpful. She has used topical CBD oil. She has returned today for renewal of her medications. ALLERGIES: PENICILLIN. CURRENT MEDICATIONS: Oxygen at home, metolazone 2.5 mg, total of 5 mg daily, Lasix 40 mg b.i.d., Lomotil p.r.n., diarrhea, Bentyl 10 mg 4 times daily, p.o. t.i.d., Symbicort 160/4.5, Singulair 10 mg, K-Dur 20 mEq, Nexium 40 mg, Lipitor 20 mg, Flonase 0.5% spray, enalapril 5 mg, aspirin 81 mg, and Citracal 200 mg. PAIN CLINIC ASSESSMENT/PQRS: 1. The patient has some arthritic changes in her back and her knees. She is not being treated for rheumatoid arthritis. 2. Height is 4 feet 11 inches, weight 161 pounds, BMI 32.6. 3. Vital signs: Blood pressure 122/59, pulse 86, respiratory rate 20, and room air saturation 97%. 4. Pain intensity, 10/10. 5. Fall history: The patient has not fallen in the last 3 months. 6. Blood thinner. The patient is not on a blood thinning medication. 7. Hypertension. The patient is being treated for hypertension. 8. Opioids greater than 6 weeks. The patient [place] [address] PAIN MANAGEMENT CONSULTATION Name: MURIEL VIZCAINO Room #: REG CL Dl#: [id number] Admission: 05/06/20 Attend Phys: Breann Hummel MD Discharge: Date of : 46 Report #: [id number] 9. Risk assessment tool, low for opioid use. 10. Functional assessment tool, . 11. Recreational drug use. The patient denies. 12. Tobacco: The patient has never smoked. 13. Alcohol. The patient denies frequent use of alcoholic beverages. PHYSICAL EXAMINATION: GENERAL: The patient is a well-developed, well-nourished white female. Appears her stated age. She is alert and oriented x 3. Her affect is appropriate. Speech is fluent. HEENT: Normocephalic, atraumatic. Extraocular eye muscles intact. Sclerae nonicteric. Mucous membranes are moist. The patient is unaccompanied. She is wearing a mask. MUSCULOSKELETAL: Upper extremity muscle strength is judged to be 5/5 for the major muscle groups in the upper extremity. HEART: Regular rate. ABDOMEN: Nontender. MUSCULOSKELETAL: The patient is without significant scoliosis, kyphosis or lordosis. The patient does have some pain and discomfort that radiates down into the right buttocks area and involves the sacroiliac joint. The patient has a positive Js's sign. IMPRESSION: 1. History of low back pain with pain radiating down into the right hip and right sacroiliac joint area. 2. History of symptomatic sacroiliac joint dysfunction. 3. Diabetes. 4. Asthma. 5. Tuberculosis - treated. 6. Hypertension. 7. Colon problems. 8. Emotional problems. RECOMMENDATIONS: We discussed treatment options with the patient. At this juncture, we will continue with her current medications. A script for her medications have been provided. The patient will consider returning to the Pain Clinic in the future, at which time a SI joint injection could be considered. A script for the patient's medications of hydrocodone 5/325 one p.o. every 4-6 hours has been provided. Ultram 50 mg 1 p.o. 4 times daily has been provided. The patient will also continue with gabapentin 300 mg 1 p.o. b.i.d. She will call us if she has any concerns or problems with her medications. [address] [address] PAIN MANAGEMENT CONSULTATION Name: MURIEL VIZCAINO Room #: REG EVELYN Lizama#: [id number] Admission: 05/06/20 Attend Phys: Breann Hummel MD Discharge: Date of : 46 Report #: [id number] We would like to thank you for letting us participate in her care. We hope she continues to improve. <ELECTRONICALLY SIGNED> By: Breann Hummel MD 05/15/20 1546 [id number] Breann Hummel MD /nt
== END ==
LOC: PAIN 07:00
PROVIDERS: ATTEND Anesthesiology Pain Medicine
DX: M54.5 Low back pain (principal); I10 Essential (primary) hypertension; E11.9 Type 2 diabetes mellitus without complications; Z79.899 Other long term (current) drug therapy

== ENCOUNTER → 2020-05-31 | Outpatient (CLI) | payer MEDICARE ==
[~2020-05-31] VITALS: Ht 149.9 cm; Wt 73.1 kg
[~2020-05-31] MED LIST changes: +VOLTAREN GEL 1100 G1 TOP
[2020-05-31 09:55] VITALS: BP 106/55
--- NOTE | 2020-05-31 10:05 | NUR ---
Pain Clinic Assessment: 1. History of Osteoarthritis: Not Applicable History of Rheumatoid Arthritis: Not Applicable 2. Height: 4 ft. 11 in. 149.9 cm. Weight: 161.2 lb. oz. 73.120 kg. Patient's BMI: 32.5 3. Vital Signs: BP: 106/55 Pulse: 84 Resp: 16 Temp: 02 Sat: 96 ECG Mon: 4. Pain Intensity: 9-10 5. Fall Risk: Dizziness: N Needs help standing or walking: N Fallen in the last 3 months: N Fall risk comments: 6. Patient on Blood Thinner: None 7. History of Hypertension: Y 8. Opioid Therapy greater than 6 weeks: Y Opiate Contract Signed: 9. Risk Assessment Tool Provided: LOW RISK 10. Functional Assessment Tool: 11. Recreational Drug Use: Never Drug Type: Tobacco Use: Never Smoker Tobacco Type: Amount or Packs/day: How Many Years: Alcohol Use: No Frequency: Quant:
--- NOTE | 2020-06-12 13:00 | HPC ---
[facility] [place] [address] PAIN MANAGEMENT CONSULTATION Name: MURIEL VIZCAINO Room #: REG EVELYN Yanira.#: [id number] Admission: 05/31/20 Attend Phys: Breann Hummel MD Discharge: Date of : 46 Report #: [id number] THIS REPORT FOR: cc: Amy Hummel MD,Amy Hummel,Breann Moran MD ~ CC: Amy Hummel DATE OF SERVICE: 05/31/2020 PRIMARY CARE PHYSICIAN: Aym Hummel MD CHIEF COMPLAINT: Return of pain in the sacroiliac joint. I would like another injection. HISTORY: The patient is a 70-year-old female who has been followed in the pain clinic because of chronic pain. She still has pain and discomfort in the sacroiliac area. She continues to feel that she is suffering from sacroiliitis. Notes that there is pain and discomfort with certain movements. Activities of daily living can be quite problematic and she rates it as a 10/10 with certain movements. She has had this problem since 2013. Injections in this area have been beneficial. She has returned today because of the increasing pain and discomfort she is experiencing. She would like to undergo another injection. Right side is most problematic. She also has some low back pain and some pain in the right thigh and groin area. Lying on the right side is problematic. Standing, walking can be problematic. Pain does worsen at night. Bending, walking up and down stairs can be problematic. She has noticed some improvement with use of cold. She finds that use of CBD oil topical is helpful. Also, cold packs are beneficial. She would like to proceed with an injection today. ALLERGIES: PENICILLIN. CURRENT MEDICATIONS: Oxygen at home, metolazone 2.5 mg total of 5 mg daily, Lasix 40 mg b.i.d., Lomotil p.r.n., diarrhea, Bentyl 10 mg 4 times daily, Symbicort 160/4.5, Singulair 10 mg, K-Dur 20 mEq, Nexium 40 mg, Lipitor 20 mg, Flonase 0.05% spray, enalapril 5 mg, aspirin 81 mg, Citracal 200 mg. PAIN CLINIC ASSESSMENT AND PQRS: 1. The patient has some arthritic changes in her low back and in her knees. She is not being treated for rheumatoid arthritis. 2. Height 4 feet 11 inches, weight 161 pounds, BMI is 32.5. 3. Vital signs: Blood pressure 106/55, pulse 84, respiratory rate 16, room air saturation 96%. 4. Pain intensity 9-10. 5. Fall risk. The patient has not fallen in the last [address] [address] PAIN MANAGEMENT CONSULTATION Name: MURIEL VIZCAINO [facility] [id number] Admission: 05/31/20 Attend Phys: Breann Hummel MD Discharge: Date of : 46 Report #: [id number] 6. Blood thinner. The patient is not on a blood thinning medication. 7. Hypertension. The patient is being treated for hypertension. 8. Opioids greater than 6 weeks. The patient receives medication from her pain clinic. 9. Risk assessment tool, low for opioid use. 10. Functional assessment tool, . 11. Recreational drug use. The patient denies. 12. Tobacco: The patient denies. 13. Alcohol: The patient denies. PHYSICAL EXAMINATION: GENERAL: The patient is a well-developed, well-nourished white female. Appears her stated age. She is alert and oriented x 3. Her affect is appropriate. Speech is fluent. HEENT: Normocephalic, atraumatic. Extraocular eye muscles intact. Sclerae nonicteric. Mucous membranes are moist. NECK: Without adenopathy or JVD. The patient is wearing a mask. HEART: Regular rate. ABDOMEN: Nontender. EXTREMITIES: Upper extremity muscle strength judged to be 5/5 for the major muscle groups in the upper extremity. The patient has pain and discomfort without significant scoliosis, kyphosis or lordosis. Pressure in the right hip area can increase the pain in her buttocks and notes increase discomfort in the sacroiliac joint area. The patient has a positive Js's sign. IMPRESSION: 1. History of low back pain with pain in the right sacroiliac joint today. 2. Diabetes. 3. Asthma. 4. Tuberculosis, treated. 5. Hypertension. 6. Colon problems. 7. Emotional problems. RECOMMENDATIONS: We discussed treatment options with the patient. Risk and benefits of an injection in the sacroiliac area were discussed. They include infection, nerve damage, bleeding, local anesthetic on the nerve with some prolonged weakness into the local anesthetic wears off. The patient elects to proceed. PROCEDURE NOTE: The patient was taken to the procedure area. She was then assisted in getting on the examination table. Her back was sterilely prepped with a chlorhexidine solution and allowed to dry. Fluoroscopy was used. The skin was infiltrated with 0.25% bupivacaine. A 22-gauge spinal needle was then advanced into the right sacroiliac joint. Aspiration was negative. Contrast dye was injected. Appropriate spread was noted. A total of 3 mL of 0.25% [address] [address] PAIN MANAGEMENT CONSULTATION Name: MURIEL VIZCAINO Room #: REG [facility].#: [id number] Admission: 05/31/20 Attend Phys: Breann Hummel MD Discharge: Date of : 46 Report #: [id number] bupivacaine and 40 mg triamcinolone was injected into the area. Pain decreased from 9-10-5 at the time of discharge. She will follow up in the future as needed. We would like to thank you for letting us participate in her care. We hope she continues to improve. <ELECTRONICALLY SIGNED> By: Breann Hummel MD 06/12/20 1300 [id number] [id number] Breann Hummel MD /PMT
== END | disposition home or self-care (01) ==
LOC: PAIN 06:39
PROVIDERS: ATTEND Anesthesiology Pain Medicine
DX: M53.3 Sacrococcygeal disorders, not elsewhere classified (principal); G89.29 Other chronic pain; M54.5 Low back pain; I10 Essential (primary) hypertension; E11.9 Type 2 diabetes mellitus without complications; J45.909 Unspecified asthma, uncomplicated; Z98.890 Other specified postprocedural states; Z79.899 Other long term (current) drug therapy; Z88.0 Allergy status to penicillin